=== PATIENT | female | born 1995 | race Caucasian/White ===

== ENCOUNTER → 2020-07-23 16:47 | Outpatient (CLI) | payer OTHER, SELFPAY ==
[2020-07-23 17:38] LABS: Add Manual Diff / Slide Review NO; Appearance Urine UA CLEAR; Basophils Absolute Auto 0 /uL (0-100); Basophils Percent Auto 0.3 % (0-2); Bilirubin Urine UA NEGATIVE (NEGATIVE); Color Urine UA YELLOW; Eosinophils Absolute Auto 0 /uL (0-450); Eosinophils Percent Auto 0.4 % (2-4); Glucose Urine UA NEGATIVE (Negative); Hematocrit 37.8 % (36-46); Hemoglobin 12.9 g/dL (12.0-16.0); Ketones Urine UA NEGATIVE (NEGATIVE); Leukocyte Esterase Urine UA TRACE (NEGATIVE); Lymphocytes Absolute Auto 1000 /uL (1100-4500); Lymphocytes Percent Auto 14.3 % (25-40); Mean Corpuscular Hemoglobin 29.8 PG (26-34); Mean Corpuscular Volume 87.5 fL (80-100); Monocytes Absolute Auto 400 /uL (0-900); Neutrophils Absolute Auto 5500 /uL (1500-7000); Nitrite Urine UA NEGATIVE (Negative); Occult Blood Urine UA TRACE-LYSED (Negative); Platelet Count 289 X10^3/uL (150-400); Protein Urine UA NEGATIVE (Negative); Red Blood Cell Count 4.32 X10^6/uL (4.0-5.2); Urobilinogen Urine UA 0.2 E.U./dL (0.2); White Blood Cell Count 6.9 X10^3/uL (4.5-11.0)
[2020-07-23 17:59] LABS: pH Urine UA 5.5 (4.5-8.0)
[2020-07-23 18:00] LABS: Bacteria Urine Few (2-10); RBC Urine 0-1/HPF (0-5/HPF); Squamous Epithelial Cell Urine 10-30 /HPF (0-5/HPF); WBC Urine 0-1/HPF (0-5/HPF)
[2020-07-24 08:14] LABS: RPR Screen Non Reactive (Non Reactive)
[2020-07-24 16:34] LABS: Varicella IgG Antibody 136 index (Immune >165)
[2020-07-25 08:18] LABS: HIV 1 & 2 Ab/Ag 4th Gen Combo NEGATIVE (NEGATIVE); Hep C Virus Ab w/Reflex Quant NEGATIVE s/c (NEGATIVE); Hepatitis B Surface Antigen NEGATIVE s/c (NEGATIVE); Rubella Antibody IgG 11.5 IU/mL (>15)
== END ==
PROVIDERS: PCP Family Medicine; Referring Provider Family Medicine; Visit Provider Family Medicine
DX: Z34.01 Encounter for supervision of normal first pregnancy, first trimester (principal)
CPT/HCPCS: 36415; 80055; 81003; 81015; 86787; 86803; 86850; 86900; 86901; 87086; 87389

== ENCOUNTER → 2020-08-20 15:00 | Outpatient (CLI) | payer OTHER, SELFPAY ==
[2020-08-30 12:09] LABS: AFP, Serum 26.6 ng/mL (.); Calc Gestational Age EDD (.); Estriol, Free 1.88 ng/mL (.); Inhibin A, Dimeric 30.94 pg/mL (.); Inhibin A, MoM 0.21 (.); Maternal Ethnicity Caucasian (.); Maternal Weight 176 lbs (.); Number of Fetuses No (.); OSBR Risk 1 IN 10000 (.); Results Report (.); Test Results *Screen Negative* (.); hCG, MoM 0.31 (.); hCG, Serum 9180 mIU/mL (.)
== END ==
PROVIDERS: PCP Family Medicine; Referring Provider Family Medicine; Visit Provider Family Medicine
DX: Z34.90 Encounter for supervision of normal pregnancy, unspecified, unspecified trimester (principal)
CPT/HCPCS: 36415; 82105; 82677; 84702; 86336

== ENCOUNTER → 2020-09-11 13:52 | Outpatient (CLI) | payer OTHER, SELFPAY ==
--- NOTE | 2020-09-11 13:53 | DI.US.S_ITS ---
PROCEDURE: US OB >= 14 WEEKS FETUS INDICATIONS: ANATOMY OUTSIDE/PRIOR DATING DATA: Last menstrual period (LMP): Not available. LMP-based estimated date of delivery (ROCK): Not available . First dating scan (date and location): 09/11/20 . Estimated date of delivery (ROCK) from first dating scan: 01/24/21 . TECHNIQUE: Real-time scanning was performed of the fetus, with image documentation and biometric measurements. Endovaginal scanning: Not needed COMPARISON: None. FINDINGS: General: A single living intrauterine gestation is present. Presentation: Vertex. Placenta: Placental position is posterior , without previa. Amniotic fluid index: 12.6 cm, normal range is 5-24 cm. heart rate: 143 beats per minute. Maternal cervical canal: 3.7 cm long. Normal lower limit is 2.5 cm. biometrics: Biparietal diameter: 4.9 cm, 20 weeks 5 days Head circumference: 18.3 cm, 20 weeks 5 days Abdominal circumference: 14.4 cm, 19 weeks 5 days Femur length: 3.6 cm, 21 weeks 3 days Estimated gestational age from initial scan: not applicable. Composite gestational age from present scan: 20 weeks 5 days Estimated weight 360 g Measurement variability for biometric dating: +/- 7 days from 14 weeks to 15 weeks 6 days gestation, +/- 10 days from 16 weeks to 21 weeks 6 days gestation, +/- 2 weeks from 22 weeks to 27 weeks 6 days gestation, +/- 3 weeks for 28 weeks gestation or later. weight reference: 4500 g or EFW >90/95% is considered macrosomia or large for gestational age. EFW <10% is small for gestational age. EFW 5% or less is considered intra-uterine growth restriction. Anatomic survey: Neuro: Ventricles are non-dilated at less than 10 mm. Cisterna magna is normal at 3-11 mm. Cerebellum is normal in size and morphology. Nuchal skin fold: Normal at less than 6 mm between 14-21 weeks gestational age. Face: Nose and lips, facial profile are normal. Spine: No evidence for spina bifida. Heart: 4-chambered heart is present, with normal ventricular outflow tracts. Diaphragm: Diaphragm is intact. Stomach: Left-sided stomach is present. Kidneys: No hydronephrosis. Normal is less than 5 mm in 2nd trimester, less than 7 mm in 3rd trimester. Cord: 3-vessel cord has orthotopic insertion. Bladder: Normal in size. Extremities: All 4 extremities identified. IMPRESSION: Appropriate interval growth, no anomaly seen. The delivery date is projected to be centered on 01/24/21. Dictated by: Maximus Galarza M.D. on 09/11/2020 at 15:05 Approved by: Maximus Galarza M.D. on 09/11/2020 at 15:08
== END ==
PROVIDERS: PCP Family Medicine; Referring Provider Family Medicine; Visit Provider Family Medicine
DX: Z34.92 Encounter for supervision of normal pregnancy, unspecified, second trimester (principal); Z3A.20 20 weeks gestation of pregnancy
CPT/HCPCS: 76811

== ENCOUNTER → 2020-11-05 14:57 | Outpatient (CLI) | payer OTHER, SELFPAY ==
[2020-11-05 17:20] LABS: Add Manual Diff / Slide Review NO; Basophils Absolute Auto 0 /uL (0-100); Basophils Percent Auto 0.2 % (0-2); Eosinophils Absolute Auto 0 /uL (0-450); Eosinophils Percent Auto 0.4 % (2-4); Hematocrit 32.9 % (36-46); Hemoglobin 11.1 g/dL (12.0-16.0); Lymphocytes Absolute Auto 800 /uL (1100-4500); Lymphocytes Percent Auto 10.1 % (25-40); Mean Corpuscular HGB Conc 33.8 % (30-36); Mean Corpuscular Hemoglobin 30.7 PG (26-34); Monocytes Absolute Auto 500 /uL (0-900); Monocytes Percent Auto 6.3 % (3-14); Neutrophils Absolute Auto 6600 /uL (1500-7000); Platelet Count 253 X10^3/uL (150-400); Red Blood Cell Count 3.62 X10^6/uL (4.0-5.2); Red Cell Distribution Width 12.9 % (11.6-14.8); White Blood Cell Count 7.9 X10^3/uL (4.5-11.0)
[2020-11-05 17:49] LABS: GTT (PREG) 1 Hour PP 50gm Dose 91 mg/dL (76-139)
== END ==
PROVIDERS: PCP Family Medicine; Referring Provider Family Medicine; Visit Provider Family Medicine
DX: Z34.90 Encounter for supervision of normal pregnancy, unspecified, unspecified trimester (principal); Z3A.26 26 weeks gestation of pregnancy
CPT/HCPCS: 36415; 82950; 85025

== ENCOUNTER → 2021-01-03 14:52 | Outpatient (CLI) | payer OTHER, SELFPAY ==
[2021-01-05 10:58] LABS: Strep Grp B PCR POS for Grp B Strep
== END ==
PROVIDERS: PCP Family Medicine; Visit Provider Family Medicine
DX: Z34.90 Encounter for supervision of normal pregnancy, unspecified, unspecified trimester (principal); Z3A.36 36 weeks gestation of pregnancy
CPT/HCPCS: 87653

== ENCOUNTER 2021-01-24 15:41 | Observation (INO) | payer OTHER, SELFPAY ==
[2021-01-24] MEDS: TERBUTALINE 1 MG/ML VIAL 0.25 MG SUBCUT (16:43)
--- NOTE | 2021-01-24 16:46 | P.HPOB_ITS ---
OB HPI Date/Time Date of admission: 01/24/21 Date Patient Seen: 01/24/21 Time Patient Seen: 16:47 History of Present Condition Chief complaint: : 1 Para: 0 Estimated Date of Delivery: 01/27/21 Estimated Gestational Age (weeks): 39w4d Narrative: Susana Junior is a 25 year old at 39w4d here due to breech presentation found at OB visit today. Pt reports that she has been feeling dramatic movements recently. She denies any contractions, vaginal bleeding, LOF. She is feeling her baby move regularly. History of Present care: good care, initiated at week # (6) and pounds weight gain (45) Dating criteria: based on 1st trimester US only Ultrasounds: normal 1st trimester US and normal mid trimester US Obstetrical complications: none Medical complications: none Preadmission Labs Blood type: A (+) positive -: Antibody screen: negative, GBS status: positive, HBsAG: negative, HIV: negative and RPR/VDLR: negative -: Chlamydia screen: not detected and Gonorrhea screen: not detected -: Rubella: not immune and Varicella: not immune HCT: 32.9 HCAB: negative PAP: Normal Quad screen: Normal 1 hr GTT: 91 Evaluation Evaluation Baseline heart rate: 125 Variability: Moderate (11-25) monitor accelerations: Present Monitor Decelerations: Absent Category of Tracing: Reactive PFSH Medical History (Updated 06/24/20 @ 15:44 by Luci Guadalupe RN) Anemia Anxiety Headache Migraine Myopia Surgical History (Updated 06/24/20 @ 15:42 by Luci Guadalupe RN) S/P wisdom tooth extraction (~2017) Family History (Updated 06/24/20 @ 15:42 by Luci Guadalupe, SHANTA) Mother Breast cancer Hypertension Father No problems noted. 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) occupational status: unemployed current occupational exposures/hazards: No alicia/oriental orthodox: Episcopal special alicia needs: No Smoking Status: Former smoker (Quit : 2017) Tobacco: How many years used: 4 Smokeless tobacco user: dissolvable tobacco (Quit 2019) second hand exposure: No alcohol intake: former (pre- : social use) substance use type: does not use Meds Home Medications and Allergies Home Medications Medication Instructions Recorded Confirmed Type prenat.vits,aster,aeb-jhym-uuert 1 tab PO DAILY 06/24/20 01/17/21 History Allergies Allergy/AdvReac Type Severity Reaction Status Date / Time No Known Drug Allergies Allergy Verified 11/19/20 14:20 Exam Const General: cooperative, healthy appearing and comfortable Orientation: alert, awake and oriented x3 Resp Effort & Inspection: normal respiratory effort Auscultation: clear to auscultation bilaterally Cardio Rate: regular rate Rhythm: regular rhythm Heart Sounds: S1 normal, S2 normal and no murmurs GI Inspection: non-distended Palpation: soft and No tender Other: gravid Other: breech presentation Extrem General: no clubbing, cyanosis or edema Assessment and Plan Assessment and Plan Assessment and Plan narrative: 25yo at 39w4d who presented for version due to breech presentation found in clinic today. Procedure Note: External Cephalic Version Pre-OP DX: 39w4d Intrauterine , Breech presentation Post-OP DX: Same Procedure: External Cephalic Version Performed by Mellisa Bradshaw MD Anesthesia: None Complications: None Indications for Procedure: The risks of the ECV discussed with her included stillbirth, abruption, emergen cy delivery, cord prolapse, transient abnormal heart rate changes, vaginal bleeding, rupture of membranes, placental abruption and fetomaternal transfusion. Bedside ultrasound done shows baby in Breech presentation, head to the maternal right in the upper abdomen , YA grossly normal, placenta posterior. Also the risks, benefits and alternatives of section were discussed w ith the patient, including but not limited to infection, allergic reaction, disfiguring scar, severe loss of blood, loss of function of any limb or organ, paralysis, paraplegia or quadroplegia, brain damage, cardiac arrest, , thrombosis, injury to bowel, bladder, fistula, injury to blood vessels, hysterectomy, injury to fetus, need for transfusion which carries risk for HIV or hepatitis, pelvic pain, adhesive disease or scar tissue, embolism, herniation of incision site, and risk of repeat cesareans / trial of labor after . She expressed understanding for the plan and desires to with the attempt of an external cephalic version. Consents were signed. Procedure: NST was performed preprocedure and was reactive and category 1. SQ Terbutaline had been given for tocolysis to relax the uterus, was used 5 mins prior to the procedure. Ultrasound done at bedside with findings as noted above. NST category 1 tracing. ECV was attempted for a few seconds without difficulty. Multiple trials were attempted, with the assistance of Dr Schmitz as well. The head did move to maternal left upper quadrant, but would not move further. No complications and the patient tolerated the procedure well. monitoring was performed for 1 hour post procedure: Nonstress Test Report Baseline 130, moderate variability, accelerations present, no decelerations, no contractions. Pt with failed version attempt. Counseled on options including primary c- section now as she is term, or attempting home maneuvers to help baby rotate. Pt prefers to try and get baby to rotate at home. Counseled on risks of labor and breech presentation vaginal delivery. Discussed importance of early return to the hospital if any signs of labor. Pt expressed understanding, and still wishes to proceed with home maneuvers. Discussed acupuncture and moxibustion as well. Pt will return for IOL as scheduled on 02/02. Will scan to determine presentation at that time. If vertex, proceed with IOL. If breech, then plan on the next day - pending scheduling confirmation.
== END 2021-01-24 18:41 | disposition home or self-care (01) ==
LOC: LABOR 15:43
PROVIDERS: Admitting Provider Family Medicine; PCP Family Medicine; Referring Provider Family Medicine; Visit Provider Family Medicine
DX: O32.1XX0 Maternal care for breech presentation, not applicable or unspecified (principal); Z3A.39 39 weeks gestation of pregnancy; O99.820 Streptococcus B carrier state complicating pregnancy
CPT/HCPCS: 59025; 59050; 59412; 76815; 96372; G0378; G0379

== ENCOUNTER 2021-02-02 17:53 | Outpatient (CLI) | payer OTHER, SELFPAY ==
--- NOTE | 2021-02-02 19:39 | P.TNLD_ITS ---
Visit Information Visit Information Date of evaluation: 02/02/21 Primary OB Provider: Mellisa Bradshaw Reason for Evaluation: Yes non-stress test Comments/Additional reasons for admission: 25yo at 40w6d here for post- dates NST and confirmation of presentation. No vaginal bleeding, LOF, or contractions. She is feeling her baby move regularly. PFS Medical History (Updated 06/24/20 @ 15:44 by Luci Guadalupe, SHANTA) Anemia Anxiety Headache Migraine Myopia Surgical History (Updated 06/24/20 @ 15:42 by Luci Guadalupe RN) S/P wisdom tooth extraction (~2017) Family History (Updated 06/24/20 @ 15:42 by Luci Guadalupe RN) Mother Breast cancer Hypertension Father No problems noted. 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) occupational status: unemployed current occupational exposures/hazards: No alicia/mandaeism: Episcopalian special alicia needs: No Smoking Status: Former smoker (Quit : 2017) Tobacco: How many years used: 4 Smokeless tobacco user: dissolvable tobacco (Quit 2019) second hand exposure: No alcohol intake: former (pre- : social use) substance use type: does not use Evaluation Evaluation Baseline heart rate: 130 Variability: Moderate (11-25) monitor accelerations: Present Monitor Decelerations: Absent Category of Tracing: Reactive Diagnosis, Plan/Disposition Plan/Disposition Plan: 25yo at 40w6d here for post-dates NST and confirmation of position. Baby remains in breech position - plan on primary tomorrow. NST re active. OB Disposition: home
[2021-02-02 19:48] LABS: COVID19 - ADMIT (NP swab/PCR) Negative (Negative)
== END 2021-02-02 18:58 | disposition home or self-care (01) ==
LOC: LABOR 17:56 → OB 02-03 13:04
PROVIDERS: PCP Family Medicine; Referring Provider Family Medicine; Visit Provider Family Medicine
DX: O48.0 Post-term pregnancy (principal); O32.1XX0 Maternal care for breech presentation, not applicable or unspecified; Z3A.40 40 weeks gestation of pregnancy; Z20.822 Contact with and (suspected) exposure to COVID-19
CPT/HCPCS: 59025; 76815; 87635; C9803; G0378; G0379

== ENCOUNTER 2021-02-03 10:43 | Inpatient (IN) | payer OTHER, SELFPAY ==
[2021-02-03] VITALS (10 sets, daily range): BP systolic 92–121; BP diastolic 55–82; PULSE 57–95; RESP 10–18; TEMP 36.2–36.3; O2SAT 97–100
--- NOTE | 2021-02-03 12:41 | PM.OBHP.1 ---
OB HPI Date/Time Date of admission: 02/03/21 Date Patient Seen: 02/03/21 Time Patient Seen: 13:16 History of Present Condition Chief complaint: PRIMARY : 1 Para: 0 Estimated Date of Delivery: 01/27/21 Estimated Gestational Age (weeks): 41w0d Narrative: Susana Junior is a 25 year old at 41w0d here for scheduled primary for breech presentation. Was found to be breech at her appt on 01/24. External cephalic version was attempted, but unsuccessful. The pt denies any vaginal bleeding, LOF, or contractions. She is feeling her baby move regularly. Her has been uncomplicated. Indications Operative indications ( section): breech presentation History of Present care: good care, initiated at week # (6) and pounds weight gain (45) Dating criteria: based on 1st trimester US only Ultrasounds: normal 1st trimester US and normal mid trimester US Obstetrical complications: none Medical complications: none Preadmission Labs Blood type: A (+) positive -: Antibody screen: negative, GBS status: positive, HIV: negative and RPR/VDLR: negative -: Chlamydia screen: not detected and Gonorrhea screen: not detected -: Rubella: not immune and Varicella: not immune HCT: 32.9 HCAB: negative PAP: Normal Quad screen: Normal Urine: Negative 1 hr GTT: 91 Evaluation Evaluation Baseline heart rate: 125 Variability: Moderate (11-25) monitor accelerations: Present Monitor Decelerations: Absent Category of Tracing: Reactive PFSH Medical History (Updated 06/24/20 @ 15:44 by Luci Guadalupe RN) Anemia Anxiety Headache Migraine Myopia Surgical History (Updated 06/24/20 @ 15:42 by Luci Guadalupe RN) S/P wisdom tooth extraction (~2017) Family History (Updated 06/24/20 @ 15:42 by Luci Guadalupe RN) Mother Breast cancer Hypertension Father No problems noted. 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 Smoking Status: Never smoker Tobacco: How many years used: 4 Smokeless tobacco user: dissolvable tobacco (Quit 2019) second hand exposure: No alcohol intake: former (pre- : social use) substance use type: does not use Meds Home Medications and Allergies Home Medications Medication Instructions Recorded Confirmed Type prenat.vits,aster,lkk-cjox-jdypx 1 tab PO DAILY 06/24/20 01/30/21 History Allergies Allergy/AdvReac Type Severity Reaction Status Date / Time No Known Drug Allergies Allergy Verified 01/30/21 09:27 Exam Const General: cooperative, healthy appearing and comfortable Orientation: alert, awake and oriented x3 Resp Effort & Inspection: normal respiratory effort Auscultation: clear to auscultation bilaterally Cardio Rate: regular rate Rhythm: regular rhythm Heart Sounds: S1 normal, S2 normal and no murmurs GI Inspection: non-distended Palpation: soft and No tender Other: gravid Presentation: vertex Extrem General: no clubbing, cyanosis or edema Objective Labs Result Diagrams: 02/03/21 11:45 Assessment and Plan Assessment and Plan Assessment and Plan narrative: 25yo at 41w0d here for primary for breech presentation. GBS positive, Rh positive. Reviewed consent with the pt, previously signed. Discussed risk of vaginal delivery with breech presentation, which pt agrees she does not wish to pursue. Discussed risks of surgery including but not limited to bleeding/hemorrhage, infection, injury to other organs including bowel and bladder, injury to fetus. Pt is agreeable to blood transfusion if medically indicated. Pt again consented to surgery. 2g of Ancef to be administered prior to surgery, and SCDs applied.
[2021-02-03 12:42] LABS: Add Manual Diff / Slide Review NO; Basophils Absolute Auto 0 /uL (0-100); Basophils Percent Auto 0.3 % (0-2); Eosinophils Absolute Auto 100 /uL (0-450); Eosinophils Percent Auto 0.7 % (2-4); Hematocrit 36.6 % (36-46); Hemoglobin 12.3 g/dL (12.0-16.0); Lymphocytes Absolute Auto 700 /uL (1100-4500); Lymphocytes Percent Auto 8.7 % (25-40); Mean Corpuscular HGB Conc 33.6 % (30-36); Mean Corpuscular Hemoglobin 30.5 PG (26-34); Mean Corpuscular Volume 90.8 fL (80-100); Monocytes Absolute Auto 500 /uL (0-900); Monocytes Percent Auto 6.7 % (3-14); Neutrophils Absolute Auto 6600 /uL (1500-7000); Neutrophils Percent Auto 83.6 % (50-75); Platelet Count 237 X10^3/uL (150-400); Red Blood Cell Count 4.03 X10^6/uL (4.0-5.2); Red Cell Distribution Width 13.3 % (11.6-14.8); White Blood Cell Count 7.9 X10^3/uL (4.5-11.0)
--- NOTE | 2021-02-03 12:42 | PM.PREOP ---
Pre-operative Note COVID-19 COVID-19 status: Negative Result date/Date tested (Pos, Neg/Pending): 02/02/21 Interval Note History & Physical reviewed/Exam performed by Physician: Yes Changes to H&P: No
[2021-02-03] MEDS: LACTATED RINGERS 1,000 ML 42 ML IV ×3 (13:10→15:46)
[2021-02-03] MEDS: CEFAZOLIN 1 GM VIAL 2 GM IV (13:40)
--- NOTE | 2021-02-03 13:42 | SUR.OPER ---
Supine on Padded OR bed, head on pillow, safety belt at thigh, arms secured on padded arm boards at <90 degrees abduction. Bump under right buttock. Legs uncrossed with pillow under knees, gel pad to heels, tape over blanket to lower legs.
--- NOTE | 2021-02-03 13:55 | SUR.OPER ---
Preoperative THA=375. Live female at 1354.
[2021-02-03] MEDS: ONDANSETRON 4 MG/2 ML INJ IV ×3 (14:45→22:59)
[2021-02-03] MEDS: METOCLOPRAMIDE 10 MG/2 ML INJ IV (14:49)
--- NOTE | 2021-02-03 14:49 | P.OP_ITS ---
Operative Date/Time/Diagnoses Date of procedure: 02/03/21 Time of procedure: 13:00 Pre-op diagnosis: 41w0d gestation GBS positive Rh positive Breech presentation Post-op diagnosis: same Procedure & Clinicians Procedure: Primary Same procedure as scheduled: Yes Indications: Breech presentation Surgeon: Mellisa Bradshaw Manuscripts Archivist: Reina Dee Anesthesia Type: Spinal Operative Notes Findings: Normal uterus, ovaries, and tubes Closure Type: primary Intraoperative meds administered: Duramorph, Ketorolac and Pitocin Applied: Catheter Estimated Blood Loss (mL): 250 Blood products transfused: none Procedure in detail: OPERATIVE COURSE: The patient was taken to the operating room where spinal anesthesia was placed. She was then prepared and draped in the normal sterile fashion in the dorsal supine position with a leftward tilt. Anesthesia was tested and found to be adequate. A Pfannensteil skin incision was then made with the scalpel and carried through to the underlying layer of fascia with the scalpel. The fascia was incised in the midline and the incision extended laterally with the Egan scissors. The superior aspect of the fascial incision was then grasped with Velasquez clamps, elevated with the help of the child care center assistant director, and the underlying rectus muscles dissected off bluntly and sharply where needed. Attention was then turned to the inferior aspect of the incision which, in a similar fashion, was grasped, tented up with Velasquez clamps, and the rectus muscle dissected off bluntly and sharply with Egan scissors. The rectus muscles were then in the midline, and the peritoneum was identified and entered bluntly. The peritoneal incision was then extended with good visualization of the bladder. Retraction was provided by the child care center assistant director. The bladder blade was then inserted and the vesicouterine peritoneum identified, grasped with pick-ups and entered sharply with the Metzenbaum scissors. The incision was then extended laterally and the bladder flap created digitally. The bladder blade was then reinserted and the lower uterine segment incised in a transverse fashion with the scalpel, with the child care center assistant director providing suction. The uterine incision was then extended superolaterally by pulling superolaterally on both sides. Membranes were ruptured and very minimal fluid was clear. The bladder blade was removed and the infant's buttocks and legs were delivered. The anterior arm and shoulder were then delivered. A moist towel was wrapped around the , and she was rotated, and the other shoulder was delivered. The infants head was then delivered easily when flipping the body towards the abdomen. The nose and mouth were suctioned with bulb suction and the cord was clamped and cut after 45 seconds. The infant was handed off to the waiting nursing staff. Cord blood was collected for Rh status. The placenta was then delivered with gentle cord traction. The uterus was then exteriorized and cleared of all clots and debris. The uterine incision was repaired with O-Vicryl in a running, locked fashion. A second layer of the same suture was used to obtain excellent hemostasis. The uterus was returned to the abdomen. The gutters were cleared of all clots. Minimal bleeding along the hysterotomy was controlled with 2x udlzch-lz-aketw sutures. The bladder flap was closed with 2-O Chromic. The peritoneum was closed with 3-O Vicryl. The fascia was reapproximated with O-Vicryl in a running fashion. The subcutaneous tissue was reapproximated with 3-O Vicryl. The skin was closed with 4-O Vicryl. The child care center assistant director helped with retraction during closures. SPONGE AND NEEDLE COUNTS: Correct x3. DRESSING: Aquacel ANTICOAGULATION: SCDs applied prior to Surgery Preop antibiotics given (see MAR). The patient was taken to recovery room having tolerated procedure well. Complications: none [place] Baby 1: Gender: Female Presentation: breech Details: weston Placental Delivery Description: Spontaneous Cord Vessel Description: 3 Vessels score (1 min): 9 score (5 min): 9 weight: 7 lb 1.829 oz Post-operative Condition: stable Disposition: PACU Aftercare: routine postop
[2021-02-03] MEDS: PROCHLORPERAZINE 10 MG/2 ML VIAL 5 MG IV (15:24)
--- NOTE | 2021-02-03 16:26 | SUR.PHASEI ---
1555 Pt transferred to in bed by this Rn. Pt vomiting subsided prior to transfer but started again upon arrived in . Updated SBAR report for Debora WOMACK. Dr Molina called prior to transfer to and returned call to and was updated by Debora WOMACK of patient continued nausea.
--- NOTE | 2021-02-03 16:29 | SUR.PHASEI ---
1443 Patient arrived to PACU in bed with Dr Syed and RN. Pt stated that her arms were less tingling. Hands with good strength and Epidural at T3. Patient began with mild nausea while MD at bedside. Pt then began to vomit bile just as Zofran given. Medicated with Reglan and then 1515 Dr Syed called and notified of patient continued emesis after 4mg zofran and 10mg reglan. See orders for Lorazepam and Compazine. Meds verified with pharmacist Dionisio by telephone prior to administering Compazine due to patient plan for breast feeding. Emesis subsided after Compazine. See transfer note.
--- NOTE | 2021-02-03 16:47 | SUR.PHASEI ---
Dr Syed in PACU. Updated on transfer of patient to with vomiting that recommenced on arrival that patient had received the 5mg of Compazine after the reglan and ondasteron as ordered and had not received the lorazepam.
[2021-02-03] MEDS: NALOXONE 0.4 MG/ML VIAL 0.2 MG IV (17:12)
[2021-02-03] MEDS: LANOLIN OINT 7 GM 1 APPLIC TOP (18:00)
[2021-02-03] MEDS: KETOROLAC 30 MG/ML VIAL IV (20:53)
[2021-02-03] MEDS: OXYCODONE IR 5 MG TABLET PO (22:57)
[2021-02-04] MEDS: IBUPROFEN 600 MG TABLET PO ×2 (01:15→18:21)
[2021-02-04 07:00] LABS: Hematocrit 28.8 % (36-46); Hemoglobin 9.6 g/dL (12.0-16.0)
[2021-02-04 08:22] VITALS: TEMP 36.4
[2021-02-04] MEDS: KETOROLAC 30 MG/ML VIAL IV (08:22)
[2021-02-04 08:23] VITALS: TEMP 36.4
[2021-02-04] MEDS: ACETAMINOPHEN 325 MG TABLET 650 MG PO ×3 (08:23→15:57)
[2021-02-04] MEDS: OXYCODONE IR 5 MG TABLET PO ×3 (11:28→21:20)
[2021-02-04 15:57] VITALS: TEMP 36.8
[2021-02-04 15:58] VITALS: TEMP 36.8
[2021-02-04 16:00] VITALS: BP 115/76; PULSE 83; RESP 16; TEMP 36.4
--- NOTE | 2021-02-04 16:58 | P.PNOB_ITS ---
Subjective - OB Subjective Date Patient Seen: 02/04/21 Time Patient Seen: 13:00 Interval history: Pt is feeling well. She reports her pain is well controlled. Her lochia is decreasing appropriately. She has not yet passed flatus. Her nausea, which was severe immediately after surgery, is significantly improved now. She is with good latch. Exam Vital Signs (past 8 hours): - 02/04/21 15:57 02/04/21 15:58 Temperature 98.2 F 98.3 F Oxygen Delivery Method Room Air Resp Auscultation: clear to auscultation bilaterally Cardio Rate: regular rate Rhythm: regular rhythm Heart Sounds: S1 normal, S2 normal and no murmurs GI Inspection: non-distended and incision (dressing c/d/i) Palpation: soft, No guarding and tender (appropriately tender) Auscultation: normal bowel sounds Other: fundus firm and below the umbilicus Extrem Right upper extremity: No no edema Objective Labs Result Diagrams: 02/04/21 06:44 Labs: Laboratory Results - last 24 hr 02/04/21 06:44 Hgb 9.6 L Hct 28.8 L Assessment & Plan Assessment and Plan (1) Breech delivery: Status: Acute (2) S/P primary low transverse : Status: Acute Plan Comments: 25yo POD#1 s/p primary for breech presentation. Pt is doing well. - Normal care - support Time Spent With Patient Time: Total time spent is greater than 50% in coordination of care (as do cumented) at patient's floor/unit and/or counseling patient: Time with patient: less than 15 minutes
[2021-02-05] MEDS: OXYCODONE IR 5 MG TABLET PO (06:45)
[2021-02-05] MEDS: IBUPROFEN 600 MG TABLET PO (06:45)
[2021-02-05] MEDS: ACETAMINOPHEN 325 MG TABLET 650 MG PO (06:45)
--- NOTE | 2021-02-05 08:17 | P.DS_ITS ---
Discharge Providers Provider Date of admission: 02/03/21 10:43 Discharge Date: 02/05/21 Primary care physician: Mellisa Bradshaw MD Consults: 02/03/21 16:47 Consult to Disability Coordinator Routine Comment: Discharge provider: Mellisa Bradshaw MD Summary Hospital Course Date Patient Seen: 02/05/21 Time Patient Seen: 07:45 Diagnoses: 41w0d GBS positive Rh positive Breech presentation Hospital Course: The patient presented for scheduled for breech presentation having failed external cephalic version. The surgery was without complications and the patient delivered a viable baby girl on 02/03/2021. Immediately the pt had severe nausea/vomiting that ultimately resolved with Narcan. She had received Duramorph during surgery. There were no additional complications. At the time of discharge she was voiding, ambulating, and passing flatus without difficulty. She was breast-feeding with good latch. Her lochia was decreasing appropriately. Her pain was adequately controlled. She will follow-up in 1 week for incision check. Peripartum Data Delivery Method: Section Procedures: Primary complications: none 1: Gender: Female Disposition of : home Discharge Diagnosis (1) Breech delivery: Status: Acute (2) S/P primary low transverse : Status: Acute Status at Discharge Cognitive/behavioral status at discharge: oriented Functional status at discharge: independent ambulation Overall status at discharge: patient is progressing back to baseline Time Spent with Patient Time attestation: Total time spent providing and/or coordinating discharge services: Objective Labs Result Diagrams: 02/04/21 06:44 Exam Vital Signs (past 8 hours): Oxygen Delivery Method Room Air Resp Auscultation: clear to auscultation bilaterally Cardio Rate: regular rate Rhythm: regular rhythm Heart Sounds: S1 normal, S2 normal and no murmurs GI Inspection: non-distended and incision (dressing c/d/i) Palpation: soft, No guarding and tender (appropriately tender) Auscultation: normal bowel sounds Other: fundus firm and below the umbilicus Extrem Right upper extremity: No no edema Discharge Plan Discharge Plan Patient Disposition: Home Discharge orders & Medications Prescriptions: New oxycodone 5 mg Tablet 5 mg PO Q4H PRN (Reason: Pain, Moderate (4-6)) Qty: 30 RF: 0 ondansetron 4 mg tablet,disintegrating 4 mg PO Q8H PRN (Reason: nausea and vomiting) Qty: 10 RF: 0 Continued prenat.vits,aster,nno-bxbj-zlles Tablet 1 tab PO DAILY RF: 0 Follow up/Referrals: Mellisa Bradshaw MD [Primary Care Provider] - Diet/Activity/Treatments Diet: Diet as Tolerated and Regular Skin/Wound/Dressing Care Report to your healthcare provider any signs of infection, such as:: chills, fever, increased pain and unusual drainage Visit Report/Discharge Packet Instructions: DI for Visit Report Forms: Patient Portal/API, Stroke Signs & Symptoms Discharge Data Primary Care Provider: Mellisa Bradshaw
[2021-02-05] MEDS: MEASLES,MUMPS,RUBELLA VACC/PF 0.5 ML VIAL SUBCUT (09:55)
== END 2021-02-05 10:22 | disposition home or self-care (01) | DRG 788 ==
PROVIDERS: Admitting Provider Family Medicine; PCP Family Medicine; Referring Provider Family Medicine; Visit Provider Family Medicine
PROC: 10D00Z1 Extraction of Products of Conception, Low, Open Approach (ICD-10-PCS; CPT 59514; principal; 2021-02-03 13:00)
DX: O64.8XX0 Obstructed labor due to other malposition and malpresentation, not applicable or unspecified (principal); O48.0 Post-term pregnancy; Z3A.41 41 weeks gestation of pregnancy; Z37.0 Single live birth; O99.824 Streptococcus B carrier state complicating childbirth
CPT/HCPCS: 01968; 36415; 59050; 59510; 59514; 76815; 85014; 85018; 85025; 86850; 86900; 86901; J0690; J0780; J1100; J1885; J2274; J2310; J2405; J2590; J2765

== ENCOUNTER → 2022-07-27 16:12 | Outpatient (CLI) | payer OTHER, SELFPAY ==
--- NOTE | 2022-07-27 16:15 | DI.US.S_ITS ---
PROCEDURE: US OB <= 14 WEEKS FETUS INDICATIONS: DATING AND VIABILITY OUTSIDE/PRIOR DATING DATA: Last menstrual period (LMP): 06/02/2022. LMP-based estimated date of delivery (ROCK): 03/09/2023. First dating scan (date and location): 07/27/2022. Estimated date of delivery (ROCK) from first dating scan: 03/18/2023. TECHNIQUE: Real-time scanning was performed of the fetus and maternal pelvic organs, with image documentation. Endovaginal scanning was also performed to better visualize the fetus and maternal ovaries. COMPARISON: None. FINDINGS: Embryo: [place]-rump length measures 0.6 cm. Gestational age 6 weeks 4 days. Heart rate: 117 bpm. A yolk sac is seen. No perigestational hemorrhage. Maternal organs: Left ovary measures 5.5 x 4.6 x 3.8 cm. Several anechoic left ovarian cysts. Largest measuring 3.9 x 2.5 x 2.4 cm. No internal vascularity. Possible left corpus luteum. Right ovary is unremarkable. IMPRESSION: 1. [facility] living intrauterine at 6 weeks 4 days based on today's crown rump length. 2. No perigestational hemorrhage. 3. Left ovarian anechoic cyst measuring 3.9 cm. We strive to produce accurate, complete, and clear reports of imaging services. To assist us in improving patient care, this report was composed using standard report templates and voice recognition software. Therefore, it may contain abnormal punctuation, insertions and/or omissions. Occasional wrong-word or sound-alike substitutions may occur. Though we review the report and make efforts to correct it, we do recommend that the report be read carefully in proper context to recognize any text inaccuracies. Dictated by: Krishna Nation M.D. on 07/28/2022 at 9:07 Approved by: Krishna Nation M.D. on 07/28/2022 at 9:13
== END ==
PROVIDERS: PCP Family Medicine; Referring Provider Family Medicine; Visit Provider Family Medicine
DX: O34.81 Maternal care for other abnormalities of pelvic organs, first trimester (principal); N83.292 Other ovarian cyst, left side; Z3A.01 Less than 8 weeks gestation of pregnancy
CPT/HCPCS: 76801

== ENCOUNTER → 2022-09-22 09:50 | Outpatient (CLI) | payer OTHER, SELFPAY ==
[2022-09-24 21:12] LABS: AFP, Serum 15.2 ng/mL (.); Estriol, Free 0.76 ng/mL (.); Inhibin A, Dimeric 43.61 pg/mL (.); Inhibin A, MoM 0.31 (.); Maternal Ethnicity Caucasian (.); Maternal Weight 194 lbs (.); Number of Fetuses No (.); OSBR Risk 1 IN 10000 (.); Results Report (.); Test Results *Screen Negative* (.); hCG, MoM 0.26 (.); hCG, Serum 10922 mIU/mL (.)
== END ==
PROVIDERS: PCP Family Medicine; Referring Provider Family Medicine; Visit Provider Family Medicine
DX: Z34.82 Encounter for supervision of other normal pregnancy, second trimester (principal); Z3A.15 15 weeks gestation of pregnancy
CPT/HCPCS: 82105; 82677; 84702; 86336